=== PATIENT | female | born 1965 | race Caucasian/White ===

== ENCOUNTER 2016-12-29 09:51 | Inpatient (IN) ==
[2016-12-29] MEDS ORDERED: Naloxone 0.4 MG/ML INJ IVP PRN (11:10)
[2016-12-29 12:10] LABS: Basophils # 0.1 K/mcL (0.0-0.2); Basophils % 0.4 %; Eosinophils # 0.3 K/mcL (0.0-0.6); Eosinophils % 2.9 %; Hematocrit 35.7 % (35.3-44.9); Hemoglobin 11.8 g/dL (11.5-15.4); Immature Granulocytes % 0.2 % (0-4); Lymphocytes # 2.7 K/mcL (0.6-4.6); Lymphocytes % 22.9 %; Mean Corpuscular HGB Conc 33.1 g/dL (31.6-35.5); Mean Corpuscular Hemoglobin 29.9 pg (28.0-33.3); Mean Corpuscular Volume 90.4 fL (83.0-100.0); Mean Platelet Volume 8.7 fL (9.4-12.4); Monocytes # 0.6 K/mcL (0.0-1.3); Monocytes % 5.1 %; Neutrophils # 7.9 K/mcL (1.6-8.9); Platelet Count 327 K/mcL (140-400); Red Blood Count 3.95 M/mcL (3.82-4.97); Red Cell Distribution Width 14.8 % (11.5-14.5); Segmented Neutrophils % 68.5 %
[2016-12-29 12:22] LABS: BUN/Creatinine Ratio 14 (6-26); Blood Urea Nitrogen 10 mg/dL (7-20); Calcium 9.4 mg/dL (8.6-10.8); Carbon Dioxide 27 mEq/L (19-29); Chloride 103 mEq/L (98-109); Glucose 106 mg/dL (70-99); Osmolality,Calculated 285 (280-300); Potassium 3.4 mEq/L (3.5-4.5); Sodium 138 mEq/L (136-145); eGFR For African Americans > 60 (> 60); eGFR For Non-African Americans > 60 (> 60)
--- NOTE | 2016-12-29 13:33 | History & Physical Report ---
Date of Encounter: 12/29/16 Time of Encounter: 13:30 24 Hour HP Update - Instructions Instructions: If the History and Physical is less than 30 days old and was completed prior to A.M. admission and or procedure and has NOT been updated on calendar day of procedure please complete this update prior to performing procedure. - Update Patient reports changes in Medical Condition: No Changes in examination, assessment, or condition: No Changes in Medication: No Preop tests/diagnostics Reviewed: Yes Review of Patient reveals the following changes:: Presented for planned initiation of rythmol. Denies recent palpitations. Reports missed doses of eliquis in the past week. Baseline EKG completed showed NSR. QRS 112, QT, QTC 382, 401. Additions to current History and Physical: Please see OV note by Dr. Camden Hopkins from 12/14/16. - Pre-Operative Checklist Home Medications Include Beta Leticia: Yes Beta Leticia Taken Today (Day of Surgery): Yes Beta Leticia Taken Yesterday (Day Prior to Surgery): Yes
[2016-12-29] MEDS ORDERED: Artificial Tears SOLN 15 ML BOTTLE OP PRN (13:34)
[2016-12-29] MEDS: Acetaminophen 325 MG TABLET PO PRN (17:08)
[2016-12-29] MEDS: APIXABAN 5 MG TABLET PO SCH (22:29)
[2016-12-29] MEDS: Lithium Carbonate 300 MG CAPSULE PO SCH (22:29)
[2016-12-29] MEDS: Famotidine 20 MG TABLET PO SCH (22:29)
[2016-12-29] MEDS: Ammonium Lactate 30 APPL/225 GM BOTTLE TP SCH (22:30)
[2016-12-30] MEDS: APIXABAN 5 MG TABLET PO SCH ×2 (08:29→20:50)
[2016-12-30] MEDS: Diltiazem CD (24hr) 180 MG CAPSULE PO SCH (08:29)
[2016-12-30] MEDS: hydroCHLOROthiazide 25 MG TABLET PO SCH (08:30)
[2016-12-30] MEDS: BuPROPion XL (24 HR) 150 MG TABLET PO SCH (08:30)
[2016-12-30] MEDS: Loratadine 10 MG TABLET PO SCH (08:30)
[2016-12-30] MEDS: Lithium Carbonate 300 MG CAPSULE PO SCH ×2 (08:30→20:50)
[2016-12-30] MEDS: Cholecalciferol (D-3) 1,000 UNIT TABLET PO SCH (08:31)
[2016-12-30] MEDS: Ammonium Lactate 30 APPL/225 GM BOTTLE TP SCH ×2 (08:31→21:51)
[2016-12-30] MEDS: Fluticasone Propionate Nasal 50 MCG/SPRAY BOTTLE NS SCH (08:33)
[2016-12-30] MEDS ORDERED: Metoprolol XL (24 HR) Succ 50 MG TAB.ER.24H PO SCH (09:00)
--- NOTE | 2016-12-30 09:52 | Electrophysiology ProgressNote ---
Date of Encounter: 12/30/16 Time of Encounter: 08:30 Assessment and Plan (1) Paroxysmal atrial fibrillation Current Visit: Yes Status: Chronic Per EP: -Known PAF. -On metoprolol and started on rhythmol -S/P 3 doses of rhythmol. -Baseline ECG with SR, HR 69. QRS 112, Qt 382, QTc 401ms. -ECG today with SB, HR 59. QRS 118, QT 441, QTc 440ms. -On eliquis for anticoagulation. Of note, patient states she may have missed doses of eliquis. -Continue rhythmol. -ECG in am. -Will continue to monitor. (2) Encounter for monitoring anti-arrhythmic therapy Current Visit: Yes Status: Acute Per cardiology: -Initiated on rhythmol. -S/p 3 doses. -Will continue to monitor. (3) detention current use of anticoagulant Current Visit: Yes Status: Chronic Per cardiology: -On eliquis for anticoagulation. -OF note, pateint states she may have missed doses of eliquis. Discussion w patient/family: The assessment and plan as outlined above was discussed with the patient who expressed understanding and agreement. All questions were answered. Thank you for involving us in the care of your patient. Please call with any questions. Discussed and reviewed with Dr.John Hopkins. Subjective Principal diagnosis: atrial fibrillation. Interval history: Patient states she feels fine today. Denies complaints. Objective Vital Signs, Last 4 Hours Temp Pulse Resp BP Pulse Ox 12/30/16 07:21 98.5 F 53 16 132/66 97 General: Conversant, No Apparent Distress HEENT: Atraumatic, Normocephaly, Mucus Membranes Moist Neck: No JVD, Normal carotid pulses Cardiac: Reg Rate and Rhythm, Normal S1 and S2, No Murmur Lungs: Normal Breath Sounds, No Wheeze, Rales, Rhonchi Neuro: Alert and responsive, No focal deficits noted Abdomen: Soft, Non-Tender Skin: No rashes noted on visualized skin Musculoskeletal: No Chest Wall Tenderness Extremities: No Clubbing, No Cyanosis, No Edema, Normal Pulses Results 12/29/16 12:05 12/29/16 12:05 Lab Results Active Medications Acetaminophen (Tylenol) 650 mg PO Q6HR PRN PRN Reason: Mild Pain (1-3) Stop: 06/30/17 11:11 Last Admin: 12/29/16 17:08 Dose: 650 mg Apixaban (Eliquis) 5 mg PO BID BHAVANA Stop: 06/30/17 21:01 Last Admin: 12/30/16 08:29 Dose: 5 mg Artificial Tears (Akwa Tears) 1 drop OP BID PRN PRN Reason: Dry Eyes Bupropion HCl (Wellbutrin Xl) 300 mg PO QAM BHAVANA Stop: 07/01/17 09:01 Last Admin: 12/30/16 08:30 Dose: 300 mg Diltiazem HCl (Cardizem Cd) 360 mg PO DAILY BHAVANA Stop: 07/01/17 09:01 Last Admin: 12/30/16 08:29 Dose: 360 mg Famotidine (Pepcid) 20 mg PO HS BHAVANA Stop: 06/30/17 21:01 Last Admin: 12/29/16 22:29 Dose: 20 mg Fluticasone Propionate (Flonase) 50 mcg NS DAILY BHAVANA PRN Reason: Protocol Stop: 07/01/17 09:01 Last Admin: 12/30/16 08:33 Dose: 50 mcg Hydrochlorothiazide (Hydrochlorothiazide) 25 mg PO DAILY BHAVANA PRN Reason: Protocol Stop: 07/01/17 09:01 Last Admin: 12/30/16 08:30 Dose: 25 mg Lactic Acid (Amlactin) 1 appl TP BID BHAVANA Stop: 06/30/17 21:01 Last Admin: 12/30/16 08:31 Dose: 1 appl Levothyroxine Sodium (Synthroid) 150 mcg PO 0630 BHAVANA Stop: 07/01/17 06:31 Last Admin: 12/30/16 06:33 Dose: 150 mcg [place] Carbonate ([place] Carbonate) 300 mg PO BID BHAVANA PRN Reason: Protocol Stop: 06/30/17 21:01 Last Admin: 12/30/16 08:30 Dose: 300 mg Loratadine (Claritin) 10 mg PO DAILY BHAVANA PRN Reason: Protocol Stop: 07/01/17 09:01 Last Admin: 12/30/16 08:30 Dose: 10 mg Metoprolol Succinate (Toprol Xl) 50 mg PO DAILY BHAVANA Stop: 07/01/17 09:01 Last Admin: 12/30/16 08:31 Dose: 50 mg Montelukast Sodium (Singulair) 10 mg PO DAILY BHAVANA Stop: 07/01/17 09:01 Last Admin: 12/30/16 08:29 Dose: 10 mg Naloxone HCl (Narcan) 0.4 mg IVP Q2MIN PRN PRN Reason: Opioid Reversal Stop: 06/30/17 11:11 Omeprazole (Prilosec) 40 mg PO 0730 [facility] Stop: 07/01/17 07:31 Last Admin: 12/30/16 08:31 Dose: 40 mg Propafenone HCl (Rhythmol) 150 mg PO Q8H BHAVANA Stop: 06/30/17 14:01 Last Admin: 12/30/16 06:33 Dose: 150 mg Vitamin D (Vitamin D) 1,000 unit PO DAILY BHAVANA Stop: 07/01/17 09:01 Last Admin: 12/30/16 08:31 Dose: 1,000 unit Laboratory Tests 12/29/16 12/29/16 12:05 12:05 Hgb 11.8 Creatinine 0.72 - EKG Interpretation EKG results cardiology: personally reviewed (ECG today with sinus bradycardia, HR 59. QRS 118ms, Qt 441, QTc 440ms.), other (Telemetry reviewed with average HR previous 12 hours noted to be 60, sinus rhythm. PVCs and PACs noted.) - VTE Reasons for not Prescribing Prophylaxis: Not indicated-Anticoagulated or INR therapeutic Consult Discharge Plan - Plan Referrals: Sandra Kiser MD [Primary Care Provider] -
[2016-12-30] MEDS: Famotidine 20 MG TABLET PO SCH (20:50)
[2016-12-30] MEDS: Acetaminophen 325 MG TABLET PO PRN (20:50)
[2016-12-31 07:23] VITALS: BP 123/59
[2016-12-31] MEDS ORDERED: Metoprolol XL (24 HR) Succ 25 MG TAB.ER.24H PO SCH (09:00)
[2016-12-31] MEDS: Diltiazem CD (24hr) 180 MG CAPSULE PO SCH (09:14)
[2016-12-31] MEDS: BuPROPion XL (24 HR) 150 MG TABLET PO SCH (09:14)
[2016-12-31] MEDS: hydroCHLOROthiazide 25 MG TABLET PO SCH (09:14)
[2016-12-31] MEDS: Lithium Carbonate 300 MG CAPSULE PO SCH (09:14)
[2016-12-31] MEDS: APIXABAN 5 MG TABLET PO SCH (09:15)
[2016-12-31] MEDS: Loratadine 10 MG TABLET PO SCH (09:15)
[2016-12-31] MEDS: Cholecalciferol (D-3) 1,000 UNIT TABLET PO SCH (09:15)
[2016-12-31] MEDS: Ammonium Lactate 30 APPL/225 GM BOTTLE TP SCH (09:17)
[2016-12-31] MEDS: Fluticasone Propionate Nasal 50 MCG/SPRAY BOTTLE NS SCH (09:18)
--- NOTE | 2016-12-31 11:25 | Discharge Summary ---
Date of Encounter: 12/31/16 Time of Encounter: 10:00 - Discharge Diagnosis (1) Paroxysmal atrial fibrillation Priority: Primary Status: Chronic Comments: Known PAF, has been SR since admission. (2) Encounter for monitoring anti-arrhythmic therapy Priority: Secondary Status: Acute Comments: Admitted for rhythmol initiation for PAF. 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 - Discharge Medications Prescriptions: Propafenone [Rhythmol] 150 mg PO Q8HR #180 tablet Home Medications: Ammonium Lactate [Dottie-Hydrolac] 1 appl TP BID 06/10/16 [History] Apixaban [Eliquis] 5 mg PO BID 06/10/16 [History] Bupropion HCl [Wellbutrin Xl] 300 mg PO QAM 06/10/16 [History] Cholecalciferol (Vitamin D3) [Vitamin D3] 10,000 unit PO QWEEK 06/10/16 [History ] Dextran 70/Hypromellose [Artificial Tears Eye Drops] 1 drop OP BID PRN 06/10/16 [History] Diltiazem HCl [Cardizem Cd] 360 mg PO DAILY 06/10/16 [History] Docosanol [Abreva] 1 appl TP AD PRN 06/10/16 [History] Fluticasone Propionate Nasal [Flonase] 1 - 2 spray NS DAILY 06/10/16 [History] Levothyroxine [Synthroid] 150 mcg PO DAILY 06/10/16 [History] [place] Carbonate 300 mg PO BID 06/10/16 [History] Loratadine [Allergy Relief] 10 mg PO DAILY 06/10/16 [History] Montelukast [Singulair] 10 mg PO DAILY 06/10/16 [History] Omeprazole [PriLOSEC] 40 mg PO DAILY 06/10/16 [History] Ranitidine HCl [Acid Coal Washer] 150 mg PO HS 06/10/16 [History] hydroCHLOROthiazide [Hydrochlorothiazide] 25 mg PO DAILY 06/10/16 [History] Propafenone [Rhythmol] 150 mg PO Q8HR #180 tablet 12/31/16 [Rx] Allergies/Adverse Reactions: 3 Allergy/AdvReac Type Severity Reaction Status Date / Time Sulfa (Sulfonamide Allergy Hives Verified 06/10/16 10:46 Antibiotics) Procedures/tests Complete & Pending: Procedures Performed prior 72 hours Category Date Time Status ECG 12 lead ECG [ECG] Routine Y 12/29/16 11:56 Completed EKG [ECG 12 lead ECG] [ECG] AM 0600 Y 12/30/16 06:00 Completed EKG [ECG 12 lead ECG] [ECG] AM 0600 Y 12/31/16 06:00 Ordered EKG [ECG 12 lead ECG] [ECG] AM 0600 Y 01/01/17 06:00 Ordered Date of admission: 12/29/16 10:09 Primary care physician: Sandra Kiser MD Discharging clinician: Ashley Ron Anticipated date of discharge: 12/31/16 - Patient Status Disposition: Home, Self-Care Condition: Good Functional capacity at discharge: independent ambulation Overall status at discharge: patient is back to baseline - Discharge Instructions Instructions: Atrial Fibrillation (DC) Follow Up With: Sandra Kiser MD [Primary Care Provider] - 02/16/17 11:40 am (this was the earliest appointment they had but they said if they have someone cancel they will call her to come in earlier) - Diet and Activity Activity: increase activity as tolerated Diet: low fat, low cholesterol, low salt diet - Hospital Course Hospital course: Ms. Ricks is a 51 year old female who was admitted to [facility] for initiation of rhythmol. Patient is status post 6 doses of rhythmol. Patient has remained in sinus rhythm. Patient became bradycardic yesterday and beta kevin was stopped. Currently on cardizem CD 360mg and rhythmol 150mg Q8 hours. Baseline ECG with SR, HR 69, QRS 112ms. ECG on 12/30/16 with SB, HR 59, QRS 118ms. ECG with SR, HR 60, QRS 117ms. ECGs discussed and reviewed with Dr.John Hopkins. Telemetry reviewed with average HR previous 12 hours noted to be 60, SR. Patient on eliquis for anitcoagulation. Educated on importance of being compliant with medications. Patient states understanding. Patient is being prepped for discharge home in stable condition. Patient has follow up appointment on 01/22/[address]John Hopkins. - Time Spent with Patient Total time spent providing and/or coordinating discharge services: Less than 30 minutes Physical Examination Vital Signs Pulse Rate 70 12/29/16 10:56 Respiratory Rate 17 12/29/16 10:56 Blood Pressure 131/79 12/29/16 10:56 Temperature 97.9 F 12/31/16 07:21 Pulse Rate 65 12/31/16 07:21 Respiratory Rate 18 12/31/16 07:21 Blood Pressure 123/59 12/31/16 07:21 O2 Sat by Pulse Oximetry 97 12/31/16 07:21 General: Conversant, No Apparent Distress HEENT: Atraumatic, Normocephaly, Mucus Membranes Moist Neck: No JVD, Normal carotid pulses Cardiac: Reg Rate and Rhythm, Normal S1 and S2, No Murmur Lungs: Normal Breath Sounds, No Wheeze, Rales, Rhonchi Neuro: Alert and responsive, No focal deficits noted Abdomen: Soft, Non-Tender Skin: No rashes noted on visualized skin Musculoskeletal: No Chest Wall Tenderness Extremities: No Clubbing, No Cyanosis, No Edema, Normal Pulses - VTE Reasons for not Prescribing Prophylaxis: Not indicated-Anticoagulated or INR therapeutic
--- NOTE | 2016-12-31 15:18 | Electrocardiograph Report ---
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
--- NOTE | 2016-12-31 15:43 | Electrocardiograph Report ---
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
== END 2016-12-31 14:30 | disposition home or self-care (01) | DRG 201 ==
LOC: ICNU 10:09 → 2NENU 13:07
PROVIDERS: ADMIT Internal Medicine Cardiovascular Disease; ATTEND Internal Medicine Cardiovascular Disease